=== PATIENT | female | born 1980 | race Two or more races ===

== ENCOUNTER 2019-02-22 09:44 | Emergency (ER) | payer SELFPAY ==
[2019-02-22] MEDS ORDERED: Sodium Chloride 0.9% 1,000 ML IV ONE (10:13)
[2019-02-22] MEDS ORDERED: Ondansetron 4 MG/2 ML SDV IVPUSH ONE (10:13)
[2019-02-22] MEDS ORDERED: Ketorolac 30 MG/ML SDV IVPUSH ONE (10:13)
--- NOTE | 2019-02-22 10:31 | EDM.PDOC ---
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 Patient is a 38-year-old female presents to the ED today with concern of left- sided abdominal pain / suprapubic pain. Patient states she's had these symptoms constantly over the past couple months but has been a dull pain until today. Patient states her pain today is now an 8 out of 10 and is worse when she moves and better when she sits still. Patient states she has not taken anything for her symptoms. Patient denies any abdominal surgery or any trauma or injury. Patient states she does also feel nauseous but has not vomited. Patient denies any health history. Patient denies fever, chills, chest pain, shortness of breath, or cough. Denies headache, neck stiff ness, change in vision, syncope, or near syncope. Denies vomiting, diarrhea, constipation, or dysuria. Has not noted any blood in urine or stool. Patient has been eating and drinking appropriately. Review of systems: As per history of present illness and below otherwise all systems reviewed and negative. Past medical history: As per history of present illness and as reviewed below otherwise noncontributory. Surgical history: As per history of present illness and as reviewed below otherwise noncontributory. Social history: See social history for further information Family history: As per history of present illness and as reviewed below otherwise noncontributory. Physical exam: General: Patient is alert, oriented, and in no acute distress. Patient sitting comfortably on exam table. HEENT: Atraumatic, normocephalic, pupils equal and reactive bilaterally, negative for conjunctival pallor or scleral icterus, mucous membranes moist, TMs normal bilaterally, throat clear, neck supple, nontender, trachea midline. No drooling or trismus noted. No meningeal signs. No hot potato voice noted. Lungs: Clear to auscultation, breath sounds equal bilaterally, chest nontender. Heart: S1S2, regular rate and rhythm without overt murmur Abdomen: Soft, nondistended. Mild suprapubic discomfort without guarding or rebound. Negative for masses or hepatosplenomegaly. Negative CVA tenderness. Pelvis: Stable nontender. Genitourinary: Deferred. Rectal: Deferred. Skin: Intact, warm, dry. No lesions or rashes noted. Extremities: Atraumatic, negative for cords or calf pain. Neurovascular unremarkable. Neuro: Awake, alert, oriented. Cranial nerves II through XII unremarkable. Cerebellum unremarkable. Motor and sensory unremarkable throughout. Exam nonfocal. Notes: Discussed the importance for follow-up with a primary care provider. Voices understanding and is agreeable to plan of care. Denies any further questions or concerns at this time. Diagnostics: CBC, CMP, UA, serum hCG, lipase, abdominal pelvic CT Therapeutics: Saline, Toradol, Zofran Prescription: Bactrim DS, Pyridium Impression: Urinary tract infection Plan: 1. Take medication as prescribed. You can also use ibuprofen and Tylenol as directed for pain and discomfort. 2. Follow-up with your primary care provider as discussed. Return to the ED as needed and as discussed. Definitive disposition and diagnosis as appropriate pending reevaluation and review of above. Left Back Pain Score (Numeric/FACES): 8 - Related Data Allergies Allergy/AdvReac Type Severity Reaction Status Date / Time No Known Allergies Allergy Verified 02/22/19 10:09 Home Meds: Home Meds Lisinopril [Zestril] 40 mg PO DAILY 02/22/19 [History] Past Medical History - Past Health History Medical/Surgical History: Denies Medical/Surgical History Cardiovascular History: Reports: Hypertension Social & Family History - Family History Family Medical History: Noncontributory - Tobacco Use Smoking Status *Q: Never Smoker - Recreational Drug Use Recreational Drug Use: No ED ROS GENERAL - Review of Systems Review Of Systems: ROS reveals no pertinent complaints other than HPI. ED EXAM, GENERAL - Physical Exam Exam: See Below (See dictation) Course - Vital Signs Last Recorded V/S: Last Vital Signs Temp 35.8 C 02/22/19 10:07 Pulse 70 02/22/19 10:07 Resp 18 02/22/19 10:07 BP 134/88 02/22/19 10:07 Pulse Ox 100 02/22/19 10:07 - Orders/Labs/Meds Orders: Active Orders 24 hr Category Date Time Status CULTURE URINE [RM] Stat Lab 02/22/19 12:47 Received Labs: Laboratory Tests 02/22/19 02/22/19 02/22/19 Range/Units 10:43 10:43 10:43 WBC 7.24 (4.0-11.0) K/uL RBC 4.33 (4.30-5.90) M/uL Hgb 13.2 (12.0-16.0) g/dL Hct 39.8 (36.0-46.0) % MCV 91.9 (80.0-98.0) fL MCH 30.5 (27.0-32.0) pg MCHC 33.2 (31.0-37.0) g/dL RDW Std Deviation 44.4 (28.0-62.0) fl RDW Coeff of [place] 13 (11.0-15.0) % Plt Count 374 (150-400) K/uL MPV 10.20 (7.40-12.00) fL Neut % (Auto) 68.9 (48.0-80.0) % Lymph % (Auto) 24.4 (16.0-40.0) % [place] % (Auto) 5.1 (0.0-15.0) % Eos % (Auto) 1.2 (0.0-7.0) % Baso % (Auto) 0.4 (0.0-1.5) % Neut # (Auto) 5.0 (1.4-5.7) K/uL Lymph # (Auto) 1.8 (0.6-2.4) K/uL [place] # (Auto) 0.4 (0.0-0.8) K/uL Eos # (Auto) 0.1 (0.0-0.7) K/uL Baso # (Auto) 0.0 (0.0-0.1) K/uL Nucleated RBC % 0.0 /100WBC Nucleated RBCs # 0 K/uL Sodium 139 (136-145) mmol/L Potassium 4.2 (3.5-5.1) mmol/L Chloride 106 (98-107) mmol/L Carbon Dioxide 24.3 (21.0-32.0) mmol/L BUN 11 (7.0-18.0) mg/dL Creatinine 0.7 (0.6-1.0) mg/dL Est Cr Clr Drug Dosing 118.99 mL/min Estimated GFR (MDRD) > 60.0 ml/min Glucose 99 (74-106) mg/dL Calcium 8.6 (8.5-10.1) mg/dL Total Bilirubin 0.4 (0.2-1.0) mg/dL AST 19 (15-37) IU/L ALT 33 (14-63) IU/L Alkaline Phosphatase 110 (46-116) U/L Total Protein 7.2 (6.4-8.2) g/dL Albumin 3.5 (3.4-5.0) g/dL Globulin 3.7 (2.6-4.0) g/dL Albumin/Globulin Ratio 0.9 (0.9-1.6) Lipase 89 (73-393) U/L HCG, Qual NEGATIVE (NEG) Urine Color Urine Appearance Urine pH (5.0-8.0) Ur Specific [place] (1.001-1.035) Urine Protein (NEGATIVE) mg/dL Urine Glucose (UA) (NEGATIVE) mg/dL Urine Ketones (NEGATIVE) mg/dL Urine Occult Blood (NEGATIVE) Urine Nitrite (NEGATIVE) Urine Bilirubin (NEGATIVE) Urine Urobilinogen (<2.0) EU/dL Ur Leukocyte Esterase (NEGATIVE) Urine RBC (0-2/HPF) Urine WBC (0-5/HPF) Ur Epithelial Cells (NONE-FEW) Urine Bacteria (NEGATIVE) Urine Mucus (NONE-MOD) 02/22/19 Range/Units 12:47 WBC (4.0-11.0) K/uL RBC (4.30-5.90) M/uL Hgb (12.0-16.0) g/dL Hct (36.0-46.0) % MCV (80.0-98.0) fL MCH (27.0-32.0) pg MCHC (31.0-37.0) g/dL RDW Std Deviation (28.0-62.0) fl RDW Coeff of [place] (11.0-15.0) % Plt Count (150-400) K/uL MPV (7.40-12.00) fL Neut % (Auto) (48.0-80.0) % Lymph % (Auto) (16.0-40.0) % [place] % (Auto) (0.0-15.0) % Eos % (Auto) (0.0-7.0) % Baso % (Auto) (0.0-1.5) % Neut # (Auto) (1.4-5.7) K/uL Lymph # (Auto) (0.6-2.4) K/uL [place] # (Auto) (0.0-0.8) K/uL Eos # (Auto) (0.0-0.7) K/uL Baso # (Auto) (0.0-0.1) K/uL Nucleated RBC % /100WBC Nucleated RBCs # K/uL Sodium (136-145) mmol/L Potassium (3.5-5.1) mmol/L Chloride (98-107) mmol/L Carbon Dioxide (21.0-32.0) mmol/L BUN (7.0-18.0) mg/dL Creatinine (0.6-1.0) mg/dL Est Cr Clr Drug Dosing mL/min Estimated GFR (MDRD) ml/min Glucose (74-106) mg/dL Calcium (8.5-10.1) mg/dL Total Bilirubin (0.2-1.0) mg/dL AST (15-37) IU/L ALT (14-63) IU/L Alkaline Phosphatase (46-116) U/L Total Protein (6.4-8.2) g/dL Albumin (3.4-5.0) g/dL Globulin (2.6-4.0) g/dL Albumin/Globulin Ratio (0.9-1.6) Lipase (73-393) U/L HCG, Qual (NEG) Urine Color YELLOW Urine Appearance CLEAR Urine pH 5.5 (5.0-8.0) Ur Specific [place] 1.025 (1.001-1.035) Urine Protein NEGATIVE (NEGATIVE) mg/dL Urine Glucose (UA) NEGATIVE (NEGATIVE) mg/dL Urine Ketones NEGATIVE (NEGATIVE) mg/dL Urine Occult Blood TRACE-INTACT H (NEGATIVE) Urine Nitrite NEGATIVE (NEGATIVE) Urine Bilirubin NEGATIVE (NEGATIVE) Urine Urobilinogen 0.2 (<2.0) EU/dL Ur Leukocyte Esterase TRACE H (NEGATIVE) Urine RBC 0-1 (0-2/HPF) Urine WBC 0-2 (0-5/HPF) Ur Epithelial Cells MODERATE (NONE-FEW) Urine Bacteria 1+ H (NEGATIVE) Urine Mucus MODERATE (NONE-MOD) Meds: Medications Discontinued Medications Generic Name Dose Route Start Last Admin Trade Name Raghavendra PRN Reason Stop Dose Admin Sodium Chloride 1,000 mls @ 999 mls/hr 02/22/19 10:13 02/22/19 10:46 Normal Saline IV 02/22/19 11:13 999 mls/hr BOLUS ONE Administration Ketorolac Tromethamine 30 mg 02/22/19 10:13 02/22/19 10:56 Toradol IVPUSH 02/22/19 10:14 30 mg ONETIME ONE Administration Ondansetron HCl 4 mg 02/22/19 10:13 02/22/19 10:55 Zofran IVPUSH 02/22/19 10:14 4 mg ONETIME ONE Administration Departure - Departure Time of Disposition: 13:25 Disposition: Home, Self-Care 01 Clinical Impression: Urinary tract infection Qualifiers: Urinary tract infection type: acute cystitis Hematuria presence: with hematuria Qualified Code(s): N30.01 - Acute cystitis with hematuria - Discharge Information Referrals: PCP,None [Primary Care Provider] - Forms: ED Department Discharge Additional Instructions: The following information is given to patients seen in the emergency department who are being discharged to home. This information is to outline your options for follow-up care. We provide all patients seen in our emergency department with a follow-up referral. The need for follow-up, as well as the timing and circumstances, are variable depending upon the specifics of your emergency department visit. If you don't have a primary care physician on staff, we will provide you with a referral. We always advise you to contact your personal physician following an emergency department visit to inform them of the circumstance of the visit and for follow-up with them and/or the need for any referrals to a consulting specialist. The emergency department will also refer you to a specialist when appropriate. This referral assures that you have the opportunity for follow-up care with a specialist. All of these measure are taken in an effort to provide you with optimal care, which includes your follow-up. Under all circumstances we always encourage you to contact your private physician who remains a resource for coordinating your care. When calling for follow-up care, please make the office aware that this follow-up is from your recent emergency room visit. If for any reason you are refused follow-up, please contact the [facility] Emergency Department at and asked to speak to the emergency department charge nurse. [facility] [address] [place] [address] [id number] 1. Take medication as prescribed. You can also use ibuprofen and Tylenol as directed for pain and discomfort. 2. Follow-up with your primary care provider as discussed. Return to the ED as needed and as discussed. - My Orders Last 24 Hours: My Active Orders 02/22/19 12:47 CULTURE URINE [RM] Stat - Assessment/Plan Last 24 Hours: My Active Orders 02/22/19 12:47 CULTURE URINE [RM] Stat
[2019-02-22 11:35] LABS: BLOOD UREA NITROGEN,BUN 11 mg/dL (7.0-18.0); CARBON DIOXIDE,CO2 24.3 mmol/L (21.0-32.0); CHLORIDE,CL 106 mmol/L (98-107); GLUCOSE RANDOM 99 mg/dL (74-106); LIPASE 89 U/L (73-393); POTASSIUM,K 4.2 mmol/L (3.5-5.1); SODIUM,NA 139 mmol/L (136-145)
--- NOTE | 2019-02-22 12:36 | CT ---
INDICATION: Left flank pain for 2-3 months. TECHNIQUE: CT abdomen and pelvis without contrast. COMPARISON: None FINDINGS: Lower chest: Unremarkable. Liver: Unremarkable. Spleen: Unremarkable. Pancreas: Unremarkable. Gallbladder and bile ducts: Unremarkable. Kidneys: No kidney or ureteral stones and no hydronephrosis. No renal lesions. Adrenal glands: Unremarkable. GI tract: Tiny appendicolith. The appendix is normal in caliber. No appendiceal wall thickening or periappendiceal fluid or fat stranding. The remainder of the bowel is normal. Vascular structures: No abdominal aortic aneurysm. Lymph nodes: Unremarkable. Miscellaneous: No free air or ascites. Pelvic Organs: Unremarkable. Bones: No acute abnormality. No suspicious bone lesion. IMPRESSION: 1. No urinary tract stones, hydronephrosis, or other cause for left flank pain. 2. Incidental note is made of a tiny appendicolith without evidence of appendicitis. Dictated by Ulises Seth MD @ 02/22/2019 12:36:05 PM Please note that all CT scans at this facility use dose modulation, iterative reconstruction, and/or weight-based dosing when appropriate to reduce radiation dose to as low as reasonably achievable. Dictated by: Ulises Seth MD @ 02/22/2019 12:36:12 (Electronically Signed)
== END 2019-02-22 13:42 | disposition home or self-care (01) ==
LOC: MW.ED 09:44
DX: N30.01 Acute cystitis with hematuria (principal); I10 Essential (primary) hypertension; Z79.899 Other long term (current) drug therapy
CPT/HCPCS: 74176; 80053; 81001; 83690; 84703; 85025; 87086; 96361; 96374; 96375; 99284; J1885; J2405; J7040

== ENCOUNTER 2020-01-20 19:13 | Emergency (ER) | payer OTHER ==
--- NOTE | 2020-01-20 19:31 | EDM.PDOC ---
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 [place] speaking; used language line medical interpreter for H&P. Patient was transferred from outside ED for concern for ectopic. Patient went to other ED for positive home test w/ LMP 11/30/2019. Noted onset of lower abdominal cramping pain x5 days acutely worsening over last 2 days. . Denies any vaginal bleeding, dysuria, fevers, N/V. Has not had ultrasound prior to today. Labs obtained at the outside ED are included below abdominal Pain Score (Numeric/FACES): 7 - Related Data Allergies Allergy/AdvReac Type Severity Reaction Status Date / Time No Known Allergies Allergy Verified 02/22/19 10:09 Home Meds: Home Meds lisinopriL [Zestril] 40 mg PO DAILY 02/22/19 [History] Past Medical History - Past Health History Medical/Surgical History: Denies Medical/Surgical History Cardiovascular History: Reports: Hypertension Social & Family History - Family History Family Medical History: Noncontributory ED ROS GENERAL - Review of Systems Review Of Systems: Comprehensive ROS is negative, except as noted in HPI. ED EXAM, GENERAL - Physical Exam Exam: See Below Exam Limited By: No Limitations General Appearance: Alert, WD/WN, No Apparent Distress Respiratory/Chest: No Respiratory Distress, Lungs Clear, No Accessory Muscle Use Cardiovascular: Normal Peripheral Pulses GI/Abdominal: Soft, No Distention, Other (b/l lower abdominal TTP without guarding or rebound) Course - Vital Signs Last Recorded V/S: Last Vital Signs Temp 98.3 F 01/20/20 19:25 Pulse 74 01/20/20 20:34 Resp 14 01/20/20 20:34 BP 119/73 01/20/20 20:34 Pulse Ox 100 01/20/20 20:34 - Re-Assessments/Exams Free Text/Narrative Re-Assessment/Exam: 01/20/20 19:52 Patient presents from outside ED for ectopic workup. That facility did not see IUP on bedside POCUS and did not have US availability in house so patient sent here. Dr. Art LAGUNA was already consulted by day-team ED physician and he recommenced f/u with him tomorrow morning, but ED physician at outside ED wanted comprehensive US tonight and I think this is reasonable; will call in [facility] for comprehensive OB Pelvic US. Labs: ABO: O Pos Hcg quant: 02593.3 mIU/mL WBC: 7.8 RBC: 3.86 Hemoglobin: 12.1 Hematocrit: 35.6 UA: yellow, glucose negative, bilirubin negative, ketones negative, Specific [place] 1.025, blood urine small (1+), pH 6.0, protein negative, nitrite/leuk est negative, 0 WBC, 0 RBC Free Text/Narrative Re-Assessment/Exam: 01/20/20 21:42 US imaging reveals IUP but no FHR, consistent with early vs miscarriage. Explained the results to the patient and importance of OBGYN f/u. Info for Dr. Cordova given. Return precautions discussed. Patient understands and agrees with plan. Departure - Departure Time of Disposition: 21:03 Disposition: Home, Self-Care 01 Condition: Good Clinical Impression: related abdominal pain of lower quadrant, antepartum - Discharge Information Instructions: Abdominal Pain During Referrals: PCP,None [Primary Care Provider] - Nilsa Cordova MD [Physician] - 1 Day Forms: ED Department Discharge Additional Instructions: The following information is given to patients seen in the emergency department who are being discharged to home. This information is to outline your options for follow-up care. We provide all patients seen in our emergency department wi th a follow-up referral. The need for follow-up, as well as the timing and circumstances, are variable depending upon the specifics of your emergency department visit. If you don't have a primary care physician on staff, we will provide you with a referral. We always advise you to contact your personal physician following an emergency department visit to inform them of the circumstance of the visit and for follow-up with them and/or the need for any referrals to a consulting specialist. The emergency department will also refer you to a specialist when appropriate. This referral assures that you have the opportunity for follow-up care with a specialist. All of these measure are taken in an effort to provide you with optimal care, which includes your follow-up. Under all circumstances we always encourage you to contact your private physician who remains a resource for coordinating your care. When calling for follow-up care, please make the office aware that this follow-up is from your recent emergency room visit. If for any reason you are refused follow-up, please contact the [facility] Emergency Department at and asked to speak to the emergency department charge nurse. Sepsis Event Note (ED) - Focused Exam Vital Signs: Vital Signs Temp Pulse Resp BP Pulse Ox 01/20/20 20:34 74 14 119/73 100 01/20/20 19:25 98.3 F 75 18 129/79 99
--- NOTE | 2020-01-20 20:49 | US ---
Obstetrical ultrasound: Multiple real-time images were obtained transvaginally. Comparison: No prior study for current . Dates: LMP: LMP given as 11/27/19, EVD 09/02/20, gestational age 7 weeks 5 days Current ultrasound: VALERY 09/14/20, gestational age 6 weeks 0 days Single intrauterine gestation is seen. Sac is slightly irregular in contour. Hyperechoic area is noted next to the internal cervical os most likely representing blood. Right ovary appears normal. Left ovary is also felt to be within normal limits. Questionable pole is noted. No heart activity is seen. Measurements: Mean sac diameter: 1.20 cm to 6 weeks 0 days Impression: 1. Equivocal pole within slightly irregular gestational sac. No heart activity is seen. Sac size correlates to a mean gestational age of 6 weeks 0 days 2. No discrete adnexal abnormalities are appreciated. 3. Hyperechoic material next to the internal cervical os most likely representing blood. 4. Follow-up ultrasound is recommended, if patient does not miscarry, in 11 days. Diagnostic code #3 Study was dictated in MDT
== END 2020-01-20 21:48 | disposition home or self-care (01) ==
LOC: MW.ED 19:13
DX: O26.891 Other specified pregnancy related conditions, first trimester (principal); R10.31 Right lower quadrant pain; R10.32 Left lower quadrant pain; I10 Essential (primary) hypertension; Z79.899 Other long term (current) drug therapy; Z3A.01 Less than 8 weeks gestation of pregnancy
CPT/HCPCS: 76817; 76817-26; 99284-25

== ENCOUNTER 2020-02-23 05:48 | Emergency (ER) | payer SELFPAY ==
[2020-02-23] MEDS ORDERED: Sodium Chloride 0.9% 2.5 ML Syringe FLUSH PRN (06:02)
[2020-02-23] MEDS ORDERED: Sodium Chloride 0.9% 10 ML Syringe FLUSH PRN (06:02)
--- NOTE | 2020-02-23 06:15 | EDM.PDOC ---
<Gina Ames - Last Filed: 02/23/20 10:25> ED HPI GENERAL MEDICAL PROBLEM - General Chief Complaint: TEMPLATE CUTTER Problem Stated Complaint: AND POSSIBLE MISCARRIAGE Time Seen by Provider: 02/23/20 05:58 - Related Data Allergies Allergy/AdvReac Type Severity Reaction Status Date / Time No Known Allergies Allergy Verified 02/23/20 06:06 Home Meds: Home Meds lisinopriL [Zestril] 20 mg PO DAILY 02/22/19 [History] Nitrofurantoin Monohyd/M-Cryst [Macrobid 100 mg Capsule] 100 mg PO BID 7 Days #14 capsule 02/23/20 [Rx] No122/Iron/Folic Acid [ Multi Tablet] 1 tab PO DAILY 02/23/20 [History] ED EXAM, GENERAL - Physical Exam General Appearance: Alert (Female) Exam: Normal External Exam, Vaginal Bleeding (minimal), Other (performed with CARLOS Storey). No: Adnexal Mass, Adnexal Tenderness, Cervical Fluid, Cervix Motion Tenderness, Vaginal Discharge (Cervical OS closed) Course - Vital Signs Text/Narrative:: Received in signout at 7 AM pending ultrasound completion and report. Patient with LMP in November presenting with lower abdominal pain, cramping and some vaginal spotting. Has not had any care other than that she had an ultrasound done here 1 month ago for abdominal cramping and to have any regular questionable gestational sac uterus with a quant of >16,000 on labs from outside hospital. She was supposed to follow-up with OB outpatient for repeat ultrasound but did not. Quant today is 13,338 Ultrasound here today shows 6-week gestational sac without heart tones, concern for blighted ovum or missed AB. This was discussed with TEMPLATE CUTTER on-call, Dr. Root, who recommends outpatient follow-up and likely medical treatment. They will see the patient in the [facility] office this week within the next few days and they actually have appointments in [place] which is where the patient lives. - Re-Assessments/Exams Free Text/Narrative Re-Assessment/Exam: 02/23/20 09:46 All results, including ultrasound findings of likely missed spontaneous , were discussed with the patient with the assistance of the guinea pig breeder language line and in the presence of the patient's nurse, Cordelia GONZALEZ.Pelvic exam performed. Cervical os closed. 02/23/20 09:54 Dr Root, on-call TEMPLATE CUTTER called back. Discussed the case. Based on the patient's physical exam, vitals and ultrasound, the patient does not need emergent D&C. She recommends outpatient follow-up in their clinic, they will fit her in this week within a few days, they actually have office hours in [facility] this week and will call the patient to schedule an appointment with a Northern [place] language speaker to discuss plan for medical treatment of missed spontaneous versus surgical intervention. 02/23/20 10:25 With the petroleum refining equipment operator line again I discussed all of the results here today, and the TEMPLATE CUTTER education dean recommendations and plan for follow-up with the patient at length. Discussed their recommendation for outpatient treatment and probable medical intervention in lieu of surgical intervention at this time. I did discuss with the patient at length return instructions and need for follow-up. The patient voiced understanding of all of the above and did have multiple opportunities to ask all questions with the science interpreter line. Departure - Departure Time of Disposition: 10:41 Disposition: Home, Self-Care 01 Clinical Impression: Blighted ovum, Missed with demise before 20 completed weeks of gestation, Asymptomatic bacteriuria during - Discharge Information Prescriptions: Nitrofurantoin Monohyd/M-Cryst [Macrobid 100 mg Capsule] 100 mg PO BID 7 Days #14 capsule Instructions: Miscarriage, [id number], Asymptomatic Bacteriuria, Incomplete Miscarriage, Blighted Ovum, Managing Loss Referrals: PCP,None [Primary Care Provider] - Forms: ED Department Discharge Additional Instructions: This is the office of the TEMPLATE CUTTER we spoke to today who will see you outpatient. They also have an office in [facility]. [facility] [address] [place] [id number] IF you are NOT ABLE to see the TEMPLATE CUTTER in the office listed above, you may also attempt to reach this clinic here in [place]. [facility] [address] [place] [id number] Segn finley ultrasonido de hoy, parece que guido tenido un aborto espontneo que no guido pasado. Despus de hablar con el mdico obstetra / gineclogo de clifton, recomend un tratamiento ambulatorio y es posible que le den un medicamento especial para completar el aborto espontneo y eliminar el embarazo que no sobrevivi. La oficina lo llamar para programar sarbjit adilson para esta semana. Sin embargo, si no lo llaman, llame al nmero que aparece arriba. Si presenta sangrado muy abundante, debilidad o aturdimiento o dolor abdominal intenso, regrese al departamento de emergencias de inmediato. Beber mucho lquido. Por favor, no coloque ningn objeto en finley vagina, incluidos tampones ni relaciones sexuales, hasta que finley obstetra / gineclogo lo autorice. Finley orina tiene algunas bacterias y por lo tanto la cubriremos con antibiticos. Le daremos sarbjit dosis aqu y tambin se le guido impreso sarbjit receta para el trinidad de los arteaga. The following information is given to patients seen in the emergency department who are being discharged to home. This information is to outline your options for follow-up care. We provide all patients seen in our emergency department with a follow-up referral. The need for follow-up, as well as the timing and circumstances, are variable depending upon the specifics of your emergency department visit. If you don't have a primary care physician on staff, we will provide you with a referral. We always advise you to contact your personal physician following an emergency department visit to inform them of the circumstance of the visit and for follow-up with them and/or the need for any referrals to a consulting specialist. The emergency department will also refer you to a specialist when appropriate. This referral assures that you have the opportunity for follow-up care with a specialist. All of these measure are taken in an effort to provide you with optimal care, which includes your follow-up. Under all circumstances we always encourage you to contact your private physician who remains a resource for coordinating your care. When calling for follow-up care, please make the office aware that this follow-up is from your recent emergency room visit. If for any reason you are refused follow-up, please contact the [facility] Emergency Department at and asked to speak to the emergency department charge nurse. 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 Midnight. She is AB 1 according to her with petroleum refining equipment operator on line.Was here 20 January 2020 with a ultrasound for similar symptoms. At that time she was noted by my partner to have the following lab findings : O positive blood type. Hemoglobin 12.1 - Ultrasound There was a sac with no heartbeat identified at that time. The hCG was 16,807.3. Dr. Cordova had been consulted but patient was sent to emergency department directly. She has not followed up. Patient does not have any other symptoms. They are moderately severe. She came from [facility] because she was sent here last time because they did not have an ultrasound. Review of systems: As per history of present illness and below otherwise all systems reviewed and negative. Past medical history: As per history of present illness and as reviewed below otherwise noncontributory. Surgical history: As per history of present illness and as reviewed below otherwise noncontributory. Social history: No reported history of drug or alcohol abuse. Family history: As per history of present illness and as reviewed below otherwise noncontributory. Physical exam: Constitutional -developed without orthostatic symptoms-well developed, well- nourished and in no acute distress HEENT - normocephalic, no evidence of trauma - external nose and mouth normal - no mass in neck and no JVD - mucosae moist EYES - full EOM, PERRL, no icterus - no evidence of inflammation, injection, or drainage Respiratory - no respiratory distress, equal bilateral expansion, lungs clear to auscultation and no abnormal lung sounds Cardiovascular - Regular Rhythm with S1 and S2 appreciated and no murmur, gallop or rub. GI -pubic tenderness without guard or rebound and no mass noted. Abdomen soft without distension or organomegaly - normal bowel sounds - no guard or rebound Musculoskeletal no gross deformity of long bones or joints - no tenderness, swelling or edema Neurologic - Alert and oriented times four - CN II-XII grossly intact - motor sensory and coordination symmetrically normal Psychiatric - appropriate mood and affect with normal thought content Hematologic - No petechiae or purpura - mucosa appropriate color and sclera not pale - normal nail bed color and refill Integument - no rash or evidence of trauma - normal turgor Diagnostics: [] Therapeutics: [] Impression: [] Plan: [] Definitive disposition and diagnosis as appropriate pending reevaluation and review of above. Onset: Today Abdomen Pain Score (Numeric/FACES): 8 Past Medical History - Past Health History Medical/Surgical History: Denies Medical/Surgical History HEENT History: Reports: None Cardiovascular History: Reports: Hypertension Respiratory History: Reports: None Gastrointestinal History: Reports: None Musculoskeletal History: Reports: None Neurological History: Reports: None Psychiatric History: Reports: None Endocrine/Metabolic History: Reports: None Oncologic (Cancer) History: Reports: None Dermatologic History: Reports: None - Infectious Disease History Infectious Disease History: Reports: None - Past Surgical History Musculoskeletal Surgical History: Reports: None Social & Family History - Family History Family Medical History: Noncontributory ED ROS GENERAL - Review of Systems Review Of Systems: Comprehensive ROS is negative, except as noted in HPI. ED EXAM, GENERAL - Physical Exam Exam: See Below Free Text/Narrative:: My physical exam as in the HPI Course - Vital Signs Text/Narrative:: As above noted I turned the patient over to my partner at end of my shift with the ultrasound results pending Last Recorded V/S: Last Vital Signs Temp 98.1 F 02/23/20 06:07 Pulse 75 02/23/20 11:00 Resp 17 02/23/20 11:00 BP 109/59 L 02/23/20 11:00 Pulse Ox 97 02/23/20 11:00 - Orders/Labs/Meds Orders: Active Orders 24 hr Category Date Time Status Saline Lock Insert [OM.PC] Stat Oth 02/23/20 06:02 Ordered Labs: Laboratory Tests 02/23/20 02/23/20 02/23/20 Range/Units 06:10 06:15 06:15 WBC 9.12 (4.0-11.0) K/uL RBC 4.25 L (4.30-5.90) M/uL Hgb 12.8 (12.0-16.0) g/dL Hct 39.1 (36.0-46.0) % MCV 92.0 (80.0-98.0) fL MCH 30.1 (27.0-32.0) pg MCHC 32.7 (31.0-37.0) g/dL RDW Std Deviation 43.4 (28.0-62.0) fl RDW Coeff of Mana 13 (11.0-15.0) % Plt Count 421 H (150-400) K/uL MPV 9.80 (7.40-12.00) fL Neut % (Auto) 69.9 (48.0-80.0) % Lymph % (Auto) 22.4 (16.0-40.0) % [place] % (Auto) 5.6 (0.0-15.0) % Eos % (Auto) 1.9 (0.0-7.0) % Baso % (Auto) 0.2 (0.0-1.5) % Neut # (Auto) 6.4 H (1.4-5.7) K/uL Lymph # (Auto) 2.0 (0.6-2.4) K/uL [place] # (Auto) 0.5 (0.0-0.8) K/uL Eos # (Auto) 0.2 (0.0-0.7) K/uL Baso # (Auto) 0.0 (0.0-0.1) K/uL Nucleated RBC % 0.0 /100WBC Nucleated RBCs # 0 K/uL Sodium 138 (136-145) mmol/L Potassium 4.1 (3.5-5.1) mmol/L Chloride 103 (98-107) mmol/L Carbon Dioxide 25.3 (21.0-32.0) mmol/L BUN 11 (7.0-18.0) mg/dL Creatinine 0.7 (0.6-1.0) mg/dL Est Cr Clr Drug Dosing TNP Estimated GFR (MDRD) > 60.0 ml/min Glucose 115 H (74-106) mg/dL Calcium 9.0 (8.5-10.1) mg/dL Total Bilirubin 0.2 (0.2-1.0) mg/dL AST 15 (15-37) IU/L ALT 25 (14-63) IU/L Alkaline Phosphatase 115 (46-116) U/L Total Protein 7.7 (6.4-8.2) g/dL Albumin 3.6 (3.4-5.0) g/dL Globulin 4.1 H (2.6-4.0) g/dL Albumin/Globulin Ratio 0.9 (0.9-1.6) Lipase 91 (73-393) U/L HCG, Quant mIU/mL Urine Color YELLOW Urine Appearance SLT CLOUDY Urine pH 5.0 (5.0-8.0) Ur Specific Mcintosh >= 1.030 (1.001-1.035) Urine Protein NEGATIVE (NEGATIVE) mg/dL Urine Glucose (UA) NEGATIVE (NEGATIVE) mg/dL Urine Ketones NEGATIVE (NEGATIVE) mg/dL Urine Occult Blood MODERATE H (NEGATIVE) Urine Nitrite NEGATIVE (NEGATIVE) Urine Bilirubin NEGATIVE (NEGATIVE) Urine Urobilinogen 0.2 (<2.0) EU/dL Ur Leukocyte Esterase TRACE H (NEGATIVE) Urine RBC 10-15 (0-2/HPF) Urine WBC 2-4 (0-5/HPF) Ur Epithelial Cells FEW (NONE-FEW) Urine Bacteria 1+ H (NEGATIVE) Urine Mucus LIGHT (NONE-MOD) Blood Type Antibody Screen 02/23/20 02/23/20 Range/Units 06:15 07:40 WBC (4.0-11.0) K/uL RBC (4.30-5.90) M/uL Hgb (12.0-16.0) g/dL Hct (36.0-46.0) % MCV (80.0-98.0) fL MCH (27.0-32.0) pg MCHC (31.0-37.0) g/dL RDW Std Deviation (28.0-62.0) fl RDW Coeff of Mana (11.0-15.0) % Plt Count (150-400) K/uL MPV (7.40-12.00) fL Neut % (Auto) (48.0-80.0) % Lymph % (Auto) (16.0-40.0) % One[place] % (Auto) (0.0-15.0) % Eos % (Auto) (0.0-7.0) % Baso % (Auto) (0.0-1.5) % Neut # (Auto) (1.4-5.7) K/uL Lymph # (Auto) (0.6-2.4) K/uL One[place] # (Auto) (0.0-0.8) K/uL Eos # (Auto) (0.0-0.7) K/uL Baso # (Auto) (0.0-0.1) K/uL Nucleated RBC % /100WBC Nucleated RBCs # K/uL Sodium (136-145) mmol/L Potassium (3.5-5.1) mmol/L Chloride (98-107) mmol/L Carbon Dioxide (21.0-32.0) mmol/L BUN (7.0-18.0) mg/dL Creatinine (0.6-1.0) mg/dL Est Cr Clr Drug Dosing Estimated GFR (MDRD) ml/min Glucose (74-106) mg/dL Calcium (8.5-10.1) mg/dL Total Bilirubin (0.2-1.0) mg/dL AST (15-37) IU/L ALT (14-63) IU/L Alkaline Phosphatase (46-116) U/L Total Protein (6.4-8.2) g/dL Albumin (3.4-5.0) g/dL Globulin (2.6-4.0) g/dL Albumin/Globulin Ratio (0.9-1.6) Lipase (73-393) U/L HCG, Quant 72819.0 mIU/mL Urine Color Urine Appearance Urine pH (5.0-8.0) Ur Specific Mcintosh (1.001-1.035) Urine Protein (NEGATIVE) mg/dL Urine Glucose (UA) (NEGATIVE) mg/dL Urine Ketones (NEGATIVE) mg/dL Urine Occult Blood (NEGATIVE) Urine Nitrite (NEGATIVE) Urine Bilirubin (NEGATIVE) Urine Urobilinogen (<2.0) EU/dL Ur Leukocyte Esterase (NEGATIVE) Urine RBC (0-2/HPF) Urine WBC (0-5/HPF) Ur Epithelial Cells (NONE-FEW) Urine Bacteria (NEGATIVE) Urine Mucus (NONE-MOD) Blood Type O POSITIVE Antibody Screen NEGATIVE Meds: Medications Discontinued Medications Generic Name Dose Route Start Last Admin Trade Name Freq PRN Reason Stop Dose Admin Nitrofurantoin Macrocrystals 100 mg 02/23/20 10:40 02/23/20 11:00 Macrobid PO 02/23/20 10:41 100 mg ONETIME ONE Administration Sodium Chloride 10 ml 02/23/20 06:02 Saline Flush FLUSH ASDIRECTED PRN Keep Vein Open Sodium Chloride 2.5 ml 02/23/20 06:02 Saline Flush FLUSH ASDIRECTED PRN Keep Vein Open Sepsis Event Note (ED) - Evaluation Sepsis Screening Result: No Definite Risk - Focused Exam Vital Signs: Vital Signs Pulse Resp BP Pulse Ox 02/23/20 11:00 75 17 109/59 L 97 02/23/20 10:00 86 18 139/85 99 02/23/20 07:30 82 18 137/84 97 - My Orders Last 24 Hours: My Active Orders 02/23/20 06:02 Saline Lock Insert [OM.PC] Stat - Assessment/Plan Last 24 Hours: My Active Orders 02/23/20 06:02 Saline Lock Insert [OM.PC] Stat
[2020-02-23 06:41] LABS: BLOOD UREA NITROGEN,BUN 11 mg/dL (7.0-18.0); CARBON DIOXIDE,CO2 25.3 mmol/L (21.0-32.0); CHLORIDE,CL 103 mmol/L (98-107); GLUCOSE RANDOM 115 mg/dL (74-106); LIPASE 91 U/L (73-393); POTASSIUM,K 4.1 mmol/L (3.5-5.1); SODIUM,NA 138 mmol/L (136-145)
--- NOTE | 2020-02-23 08:53 | US ---
INDICATION: Early with bleeding. TECHNIQUE Early obstetrical ultrasound. Endovaginal study was performed to evaluate early and adnexal regions. FINDINGS: : The gestational sac is identified. There is a yolk sac but no definite pole or cardiac activity. Adnexal regions: No free fluid. Difficult to evaluate the ovaries. Uterus: No mass. COMPARISON: Obstetrical ultrasound 01/18/2020. IMPRESSION: 1. There is a gestational sac with a small yolk sac but no definite pole. The mean sac diameter correlates with a gestational age of 6 weeks and 6 days. The estimated menstrual age is 12 weeks and 1 day. 2. This is suggestive of blighted ovum or Anembryonic . 3. No specific adnexal abnormality although the pricing actuary was unable to definitely identify either ovary. Dictated by Nikko Soares MD @ Feb 23 2020 8:47AM Signed by Dr. Nikko Soares @ Feb 23 2020 8:52AM
[2020-02-23] MEDS ORDERED: Nitrofurantoin Monohydrate/Macrocrystalline 100 MG Cap PO ONE (10:40)
== END 2020-02-23 11:05 | disposition home or self-care (01) ==
LOC: MW.ED 05:48
DX: O02.0 Blighted ovum and nonhydatidiform mole (principal); R82.71 Bacteriuria; I10 Essential (primary) hypertension; Z79.899 Other long term (current) drug therapy
CPT/HCPCS: 36415; 76801; 80053; 81001; 83690; 84702; 85025; 86850; 86900; 86901; 99284; A9270

== ENCOUNTER 2020-09-10 13:36 | Emergency (ER) | payer OTHER ==
[2020-09-10] MEDS ORDERED: Ketorolac 15 MG/ML SDV IM ONE (14:20)
[2020-09-10] MEDS ORDERED: Ketorolac 15 MG/ML SDV IVPUSH ONE (14:27)
[2020-09-10 14:48] LABS: BLOOD UREA NITROGEN,BUN 12 mg/dL (7.0-18.0); CARBON DIOXIDE,CO2 25.4 mmol/L (21.0-32.0); CHLORIDE,CL 103 mmol/L (98-107); GLUCOSE RANDOM 116 mg/dL (74-106); POTASSIUM,K 3.6 mmol/L (3.5-5.1); SODIUM,NA 138 mmol/L (136-145)
--- NOTE | 2020-09-10 15:11 | CR ---
HISTORY: Chest pain COMPARISON: None available FINDINGS: A portable erect AP view of the chest was obtained at 1429 hours. The lungs are clear. No focal or diffuse infiltrates are present. The heart is normal in size. The mediastinum is normal in appearance. The osseous structures are normal in appearance for the patient`s age. IMPRESSION: Normal portable chest single view. Dictated by Paulino Sauer MD @ Sep 10 2020 3:08PM Signed by Dr. Paulino Sauer @ Sep 10 2020 3:09PM
--- NOTE | 2020-09-10 17:10 | EDM.PDOC ---
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 The patient states that for approximately 1 week she is experiencing chest pain which she describes as dull and pressure-like located in the center of her chest rated 7 out of 10. She describes the pain as constant and worsening last night. She states that she also has bilateral back and arm muscle pain. She denies any heavy lifting. She denies any diaphoresis, nausea or vomiting when this chest pain started. She does not do any heavy lifting. She states that she did have some mild shortness of breath but denies any cough, fever or chills. She denies any swelling in her legs or sick contacts. She states that the pain is not exacerbated by anything and nothing seems to be relieving it. She states that some of the pain was improved by ibuprofen, aspirin and garlic. She denies any recent travel, recent surgery or prior history of DVT or PE. She denies any family history of early onset CAD. REVIEW OF SYSTEMS: Constitutional: Denies fever, chills. Eyes: Denies eye pain Ears, Nose, Mouth, & Throat: Denies earache Cardiovascular: Positive for chest pain Respiratory: Positive for shortness of breath Gastrointestinal: Denies Nausea, vomiting, diarrhea, hematochezia. Genitourinary: Denies hematuria Skin:Denies a rash MSK: Positive for bilateral shoulder and arm pain Neurological: Denies blurred vision, numbness, tingling, weakness Psychiatric: Denies depression PAST MEDICAL HISTORY: As per history of present illness and as reviewed below otherwise noncontributory. SURGICAL HISTORY: As per history of present illness and as reviewed below otherwise noncontributory. SOCIAL HISTORY: As per history of present illness and as reviewed below otherwise noncontributory. FAMILY HISTORY: As per history of present illness and as reviewed below otherwise noncontributory. EXAMINATION OF ORGAN SYSTEMS/BODY AREAS: Constitutional: Blood pressure was 142/73, heart rate 80, respiratory 16 with an oxygen saturation 98% on room air. Temperature 36.6 General: Overall well-appearing woman who is in no acute distress. Psychiatric: Appropriate mood and affect. Eyes: No scleral icterus or conjunctival erythema ENMT: Moist mucous membranes. No pharyngeal erythema Cardiovascular: Regular, rate, and rhythm. No gallops, murmurs, or rubs. Bilateral upper extremity pulses symmetric and intact. No peripheral edema. No JVD. Respiratory: Lungs clear to auscultation bilaterally. No wheezes, rales, or rhonchi. Gastrointestinal: Soft, non-tender, non-distended. Normoactive bowel sounds Genitourinary: No suprapubic tenderness Musculoskeletal: Bilateral paraspinal cervical muscle tenderness. No deformity. Full range of motion of all extremities. Skin: No lesions or abrasions. Neurological: Alert, GCS of 15. Strength and sensation grossly intact in upper and lower extremities bilaterally. MEDICAL DECISION MAKING AND COURSE IN THE ED WITH INTERPRETATION/REVIEW OF DIAGNOSTIC STUDIES: This is a 40-year-old with a past medical history of hypertension who comes to the emergency department with an 1 week of chest pain and bilateral upper back pain who is mildly hypertensive but overall appears well. At this time EKG was obtained which did not reveal any acute signs of ischemia. Given the duration of her symptoms and the atypical nature of her chest pain we will obtain 1 troponin and screening labs. Will obtain a chest x- ray. We will provide the patient with Toradol for pain relief as I do believe her symptoms are likely secondary to musculoskeletal strain versus spasm. We will place the patient on cardiac monitoring and pulse oximetry. PERC Rule Age (>/=50): No (0) HR (>/=100): No (0) SaO2 on RA <95%: No (0) Unilateral Leg Swelling: No (0) Hemoptysis: No (0) Surgery/rauma in last month requiring general anesthesia: No (0) Prior PE or DVT: : No (0) Hormone Use: No (0) PERC negative Since patient is PERC negative and pre-test probability <15%, there is no need for more intensive workup, <2% chance of PE Heart Score History: Slightly or Non-Suspicious (0) ECG: Normal (0) Age: <45 (0) Risk Factors: 1-2 (2) Initial Troponin: </= normal limit (0) Total Score: 2 Laboratory: CBC is unremarkable. BMP is unremarkable. Magnesium is normal. Troponin is negative. The radiological images were viewed by myself along with reading the report from the radiologist. Chest x-ray does not reveal any acute cardiopulmonary process. After labs and imaging I did discuss results with the patient. At this time I did discuss her I do believe is secondary to musculoskeletal pain. I did provide her with a pain regimen and that she should follow-up with the primary care physician. She is to return for any new or worsening symptoms. She was amenable to discharge at this time and had no further questions. DISPOSITION: The patient was discharged home in stable condition. She should follow-up with her primary care physician within 1 week CONDITION: Good PROCEDURES: None FINAL IMPRESSION(S)/DIAGNOSES: 1. Acute chest pain 2. Acute paraspinal back pain Luis Jones M.D. 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: Musculoskeletal History: Reports: None Neurological History: Reports: None Psychiatric History: Reports: None Endocrine/Metabolic History: Reports: None Insulin Pump Model and Breast Worker: None Hematologic History: Reports: None Immunologic History: Reports: None Oncologic (Cancer) History: Reports: None Dermatologic History: Reports: None - Infectious Disease History Infectious Disease History: Reports: None - Past Surgical History Head Surgeries/Procedures: Reports: None Musculoskeletal Surgical History: Reports: None Social & Family History - Family History Family Medical History: No Pertinent Family History - Caffeine Use Caffeine Use: Reports: None - Recreational Drug Use Recreational Drug Use: No ED ROS GENERAL - Review of Systems Review Of Systems: See Below ED EXAM, GENERAL - Physical Exam Exam: See Below Course - Vital Signs Last Recorded V/S: Last Vital Signs Temp 36.4 C 09/10/20 17:30 Pulse 72 09/10/20 17:30 Resp 20 09/10/20 17:30 BP 114/57 L 09/10/20 17:30 Pulse Ox 98 09/10/20 17:30 - Orders/Labs/Meds Labs: Laboratory Tests 09/10/20 09/10/20 Range/Units 13:47 13:47 WBC 8.50 (4.0-11.0) K/uL RBC 4.21 L (4.30-5.90) M/uL Hgb 12.8 (12.0-16.0) g/dL Hct 38.3 (36.0-46.0) % MCV 91.0 (80.0-98.0) fL MCH 30.4 (27.0-32.0) pg MCHC 33.4 (31.0-37.0) g/dL RDW Std Deviation 42.5 (28.0-62.0) fl RDW Coeff of Mana 13 (11.0-15.0) % Plt Count 387 (150-400) K/uL MPV 10.10 (7.40-12.00) fL Neut % (Auto) 69.2 (48.0-80.0) % Lymph % (Auto) 24.2 (16.0-40.0) % Placer % (Auto) 3.8 (0.0-15.0) % Eos % (Auto) 2.4 (0.0-7.0) % Baso % (Auto) 0.4 (0.0-1.5) % Neut # (Auto) 5.9 H (1.4-5.7) K/uL Lymph # (Auto) 2.1 (0.6-2.4) K/uL Placer # (Auto) 0.3 (0.0-0.8) K/uL Eos # (Auto) 0.2 (0.0-0.7) K/uL Baso # (Auto) 0.0 (0.0-0.1) K/uL Nucleated RBC % 0.0 /100WBC Nucleated RBCs # 0 K/uL Sodium 138 (136-145) mmol/L Potassium 3.6 (3.5-5.1) mmol/L Chloride 103 (98-107) mmol/L Carbon Dioxide 25.4 (21.0-32.0) mmol/L BUN 12 (7.0-18.0) mg/dL Creatinine 0.8 (0.6-1.0) mg/dL Est Cr Clr Drug Dosing 84.82 mL/min Estimated GFR (MDRD) > 60.0 ml/min Glucose 116 H (74-106) mg/dL Calcium 8.7 (8.5-10.1) mg/dL Magnesium 2.0 (1.8-2.4) mg/dL Troponin I < 0.050 (0.000-0.056) ng/mL Meds: Medications Discontinued Medications Generic Name Dose Route Start Last Admin Trade Name Freq PRN Reason Stop Dose Admin Ketorolac Tromethamine 15 mg 09/10/20 14:20 09/10/20 14:28 Ketorolac 15 Mg/Ml Sdv IM 09/10/20 14:21 Not Given ONETIME ONE Ketorolac Tromethamine 15 mg 09/10/20 14:27 09/10/20 14:38 Ketorolac 15 Mg/Ml Sdv IVPUSH 09/10/20 14:28 15 mg ONETIME ONE Administration Departure - Departure Time of Disposition: 17:30 Disposition: Home, Self-Care 01 Clinical Impression: Musculoskeletal pain - Discharge Information *PRESCRIPTION DRUG MONITORING PROGRAM REVIEWED*: No *COPY OF PRESCRIPTION DRUG MONITORING REPORT IN PATIENT ROBBIE: No Instructions: Nonspecific Chest Pain, Adult, [id number], Musculoskeletal Pain Referrals: PCP,None [Primary Care Provider] - Forms: ED Department Discharge Additional Instructions: You evaluate today on an emergent basis. At this time your work-up was negative. I do believe your pain is from muscle pain. I recommend that the pain regimen below. If you have any new or worsening symptoms return to the emergency department. Please follow-up with primary care physician within 1 week. Please use: Tylenol 500-1000mg every 6 hours (DO NOT TAKE MORE THAN 4000mg in 1 day) Ibuprofen 400mg every 6 hours (Take with food as it can cause ulcers, GI upset) Example schedule: 8:00 AM (Tylenol 500-1000mg) 11:00 AM (Ibuprofen 400mg) 2:00 PM (Tylenol 500-1000mg) 5:00 PM (Ibuprofen 400mg) In addition to Tylenol and Motrin you may use over the counter creams such as Voltaren Cream or Lidocaine Cream (Lidoderm) as needed 4 times a day for symptomatic relief. Ice the area 20 minutes 4 times per day The patient is informed of any results of their evaluation and diagnostic workup and all questions are answered. They are given discharge instructions and return precautions. The patient is stable for discharge. The patient states they understand and agree with the plan and that they will return if their symptoms get worse or if they have any new concerns. The following information is given to patients seen in the emergency department who are being discharged to home. This information is to outline your options for follow-up care. We provide all patients seen in our emergency department with a follow-up referral. The need for follow-up, as well as the timing and circumstances, are variable depending upon the specifics of your emergency department visit. If you don't have a primary care physician on staff, we will provide you with a referral. We always advise you to contact your personal physician following an emergency department visit to inform them of the circumstance of the visit and for follow-up with them and/or the need for any referrals to a consulting specialist. The emergency department will also refer you to a specialist when appropriate. This referral assures that you have the opportunity for follow-up care with a specialist. All of these measure are taken in an effort to provide you with optimal care, which includes your follow-up. Under all circumstances we always encourage you to contact your private physician who remains a resource for coordinating your care. When calling for follow-up care, please make the office aware that this follow-up is from your recent emergency room visit. If for any reason you are refused follow-up, please contact the [facility] Emergency Department at and asked to speak to the emergency department charge nurse. Sepsis Event Note (ED) - Evaluation Sepsis Screening Result: No Definite Risk
--- NOTE | 2020-09-11 09:32 | PCM.EKG ---
#1 Interpretation EKG Date: 09/10/20 Time: 13:40 Rhythm: NSR Rate (Beats/Min): 80 [place]: Normal P-Wave: Present QRS: Normal ST-T: Normal QT: Normal Comparison: NA - No Prior EKG EKG Interpretation Comments: Sinus Rhythm
== END 2020-09-10 17:34 | disposition home or self-care (01) ==
LOC: MW.ED 13:36
DX: R07.89 Other chest pain (principal); M54.6 Pain in thoracic spine; I10 Essential (primary) hypertension; Z79.899 Other long term (current) drug therapy
CPT/HCPCS: 36415; 71045; 80048; 83735; 84484; 85025; 93005; 96374; 99285; J1885; 93010; 99284

== ENCOUNTER 2021-08-24 07:56 | Day surgery (SDC) | payer SELFPAY ==
[~2021-08-24 07:56] MED LIST: Albuterol 0.083% 2.5 MG/3 ML Neb Soln NEB PRN; Bupivacaine 0.5% 30 ML SDV ONE; HYDROmorphone 1 MG/ML Syringe IVPUSH PRN; Lactated Ringers 1,000 ML IV SCH; Metoclopramide 10 MG/2 ML SDV IVPUSH PRN; Morphine 4 MG/ML VIAL IVPUSH PRN; Naloxone 0.4 MG/ML SDV IVPUSH PRN; Ondansetron 4 MG/2 ML SDV IVPUSH PRN; ceFAZolin 1 GM Vial ONE; cefOXitin 2 GM in Premix Bag 1 BAG IV ONE; fentaNYL 100 MCG/2 ML SDV IVPUSH PRN
[2021-08-24] MEDS ORDERED: Scopolamine 1.5 MG Transdermal Patch ONE (08:44)
[2021-08-24] MEDS ORDERED: Scopolamine 1.5 MG Transdermal Patch TRDERM PRN (08:45)
[2021-08-24] MEDS ORDERED: Propofol 200 MG/20 ML SDV ONE (08:52)
[2021-08-24] MEDS ORDERED: Midazolam 1 MG/ML 2 ML SDV ONE (08:52)
[2021-08-24] MEDS ORDERED: fentaNYL 100 MCG/2 ML SDV ONE (08:52)
[2021-08-24] MEDS ORDERED: cefOXitin 1 GM Vial ONE (08:53)
[2021-08-24] MEDS ORDERED: Water For Injection, Sterile 20 ML ONE (08:53)
[2021-08-24] MEDS ORDERED: Dexamethasone 4 MG/ML 5 ML MDV ONE (08:53)
[2021-08-24] MEDS ORDERED: Esmolol 100 MG/10 ML SDV ONE (08:53)
[2021-08-24] MEDS ORDERED: Dexmedetomidine 200 MCG/2 ML SDV ONE (08:53)
[2021-08-24] MEDS ORDERED: Rocuronium Bromide 50 MG/5 ML Syringe ONE (08:53)
[2021-08-24] MEDS ORDERED: Lidocaine 2% 5 ML SDV ONE (08:53)
[2021-08-24] MEDS ORDERED: ePHEDrine 50 MG/ML SDV ONE (09:59)
[2021-08-24] MEDS ORDERED: Ondansetron 4 MG/2 ML SDV ONE (10:03)
[2021-08-24] MEDS ORDERED: Ketorolac 30 MG/ML SDV ONE (10:03)
[2021-08-24] MEDS ORDERED: Sugammadex Sodium 200 MG/2 ML VIAL ONE (10:03)
[2021-08-24] MEDS ORDERED: Acetaminophen/HYDROcodone 325-5 MG Tab PO PRN (10:42)
[2021-08-24] MEDS ORDERED: Morphine 4 MG/ML VIAL IVPUSH PRN (10:42)
[2021-08-24] MEDS ORDERED: Lactated Ringers 1,000 ML IV SCH (10:45)
== END 2021-08-24 14:12 | disposition home or self-care (01) ==
LOC: MW.SDS 07:56
PROVIDERS: ATTEND Surgery
DX: K81.1 Chronic cholecystitis (principal); K90.49 Malabsorption due to intolerance, not elsewhere classified; I10 Essential (primary) hypertension; E66.01 Morbid (severe) obesity due to excess calories; Z68.41 Body mass index [BMI] 40.0-44.9, adult; Z98.890 Other specified postprocedural states; Z83.79 Family history of other diseases of the digestive system; Z78.9 Other specified health status; Z79.899 Other long term (current) drug therapy
CPT/HCPCS: 47562; 81025; A9270; J0131; J0690; J0694; J1100; J1170; J1885; J2250; J2405; J2704; J3010; J3490; J7030; J7120; 00790